=== PATIENT | male | born 1980 | race African-American/Black ===

== ENCOUNTER 2019-07-13 03:21 | Emergency (ER) | payer SELFPAY ==
[~2019-07-13] VITALS: Ht 165.1 cm; Wt 72.6 kg
[2019-07-13 03:30] VITALS: BP 145/110
--- NOTE | 2019-07-13 03:30 | NUR ---
ED Nurse Note: Patient walked into ED c/o nosebleeding. It's been about for 2 hours due to taking drug from nose. Pt is AO x 4, amulatory.
--- NOTE | 2019-07-13 03:40 | NUR ---
ED Nurse Note: Cleaned up blood on his face and hand. Provioded pt nose clip. Denies SOB and pain.
--- NOTE | 2019-07-13 03:59 | Emergency Room Report ---
History of Present Illness General Chief Complaint: Nosebleed Source: Patient Present Illness HPI This is a 39-year-old male with a history of high blood pressure but not take any blood pressure medication. He presents with chief complaint of nosebleed. Mostly on the left side. Onset for last 2 hours. Unable to get it to stop. This occurred after he was snorting cocaine. He also had alcohol tonight. No fever chills but no nausea no vomiting. Similar symptom in the past but usually stop on its own. Allergies: Coded Allergies: No Known Allergies (Unverified , 07/13/19) COVID-19 Screening Contact w/high risk pt: No Recent Travel to affected area: No Experienced COVID-19 symptoms?: No COVID-19 Testing performed PATHOLOGY TECH: No Patient History Past Medical History: see triage record, old chart reviewed, HTN Past Surgical History: none Pertinent Family History: none Social History: Reports: smoking, alcohol use, drug use Immunizations: other Reviewed Nursing Documentation: PMH: Agreed; PSxH: Agreed Nursing Documentation-PMH Past Medical History: No History, Except For Hx Hypertension: Yes Review of Systems Eye: Denies: eye pain, blurred vision ENT: Denies: ear pain, nose congestion, throat swelling Respiratory: Denies: cough, shortness of breath Cardiovascular: Denies: chest pain, palpitations Gastrointestinal: Denies: abdominal pain, diarrhea, nausea, vomiting Musculoskeletal: Denies: back pain, joint pain Skin: Denies: rash Neurological: Denies: headache, numbness Endocrine: Denies: increased thirst, increased urine Hematologic/Lymphatic: Denies: easy bruising All Other Systems: negative except mentioned in HPI Physical Exam Vital Signs Date Time Temp Pulse Resp B/P (MAP) Pulse Ox O2 Delivery O2 Flow Rate FiO2 07/13/19 03:27 97.9 110 18 145/110 (122) 98 Room Air Vitals with high blood pressure Sp02 EP Interpretation: reviewed, normal General Appearance: well appearing, no apparent distress, alert Head: normocephalic, atraumatic Eyes: bilateral eye PERRL, bilateral eye EOMI ENT: hearing grossly normal, normal pharynx, other - Brisk oozing on the septum of the left nares. No posterior bleeding. Right side with scant bleeding but not active. Neck: full range of motion, supple, no meningismus Respiratory: chest non-tender, lungs clear, normal breath sounds Cardiovascular #1: regular rate, rhythm, no murmur Gastrointestinal: normal bowel sounds, non tender, no mass, no organomegaly, no bruit, non-distended Musculoskeletal: back normal, normal range of motion, gait/station normal Psychiatric: mood/affect normal Procedures Additional Procedure Procedure Narrative Procedure: Epistaxis control Indication: Epistaxis Description: I placed a 5.5 cm Rhino Rocket in the left nares. I inflated it. This helped slow down the bleeding. Patient tolerated procedure without any problem. Medical Decision Making Diagnostic Impression: Primary Impression: Epistaxis Additional Impressions: Hypertension Qualified Codes: I10 - Essential (primary) hypertension Cocaine abuse ER Course Patient presents with epistaxis. Probably worsened because of his cocaine and hypertension. Better after Rhino Rocket. Will discharge home. Dose of Norvasc given here. Last Vital Signs Date Time Temp Pulse Resp B/P (MAP) Pulse Ox O2 Delivery O2 Flow Rate FiO2 07/13/19 03:27 97.9 110 18 145/110 (122) 98 Room Air Status: improved Disposition: HOME, SELF-CARE Condition: Stable Scripts Amlodipine Besylate (Norvasc) 10 Mg Tablet 10 MG ORAL DAILY, #90 TAB Prov: Everett Doty MD 07/13/19 Referrals: NOT CHOSEN [facility]/,REFERRING (PCP) Patient Instructions: Nosebleed, [id number] Additional Instructions: Stop using drugs. Follow-up with rehab. Take your blood pressure medication. Follow-up with your doctor in 7 days. Return if symptoms worsen. Everett Doty MD July 13, 2019 03:59
[2019-07-13] MEDS ORDERED: NORVASC10 MG ORAL (04:02)
--- NOTE | 2019-07-13 04:08 | NUR ---
ED Nurse Note: Provided HTN meds for his high BP. Denies headache and pain.
[2019-07-13 04:30] VITALS: BP 145/110
--- NOTE | 2019-07-13 04:30 | NUR ---
ER DISCHARGE NOTE: Patient is cleared to be discharged per ERMD, pt is aox4, on room air, with stable vital signs. pt was given dc and prescription instructions, pt was able to verbalize understanding, pt id band removed without complications. pt is able to ambulate with steady gait. pt took all belongings. pt was provided clinic information for his follow up visit.
== END 2019-07-13 04:30 | disposition home or self-care (01) ==
LOC: EMR 03:30
DX: R04.0 Epistaxis (principal); I10 Essential (primary) hypertension; F14.10 Cocaine abuse, uncomplicated; F17.200 Nicotine dependence, unspecified, uncomplicated
CPT/HCPCS: 99282

== ENCOUNTER 2019-07-15 07:14 | Emergency (ER) | payer SELFPAY ==
[~2019-07-15] VITALS: Ht 162.6 cm; Wt 68.0 kg
[~2019-07-15 07:14] MED LIST: NORVASC10 MG ORAL
[2019-07-15 07:38] VITALS: BP 141/91
--- NOTE | 2019-07-15 07:40 | NUR ---
ED Nurse Note:pt. came to remove rhinoracket in left nausdril, seen by
--- NOTE | 2019-07-15 07:54 | Emergency Room Report ---
History of Present Illness General Chief Complaint: Nosebleed Source: Patient Present Illness HPI Patient had epistaxis that was controlled with the Rhino Rocket. He is here for Rhino Rocket removal. There is been no bleeding with the Rhino Rocket in place. Patient denies fevers or chills. Patient denies headaches. Patient denies melena. Allergies: Coded Allergies: No Known Allergies (Unverified , 07/13/19) COVID-19 Screening Contact w/high risk pt: No Recent Travel to affected area: No Experienced COVID-19 symptoms?: No COVID-19 Testing performed [employer]: No Patient History Past Medical History: see triage record Social History: Reports: smoking, drug use - Cocaine Social History Narrative From home Reviewed Nursing Documentation: PMH: Agreed; PSxH: Agreed Nursing Documentation-PMH Hx Hypertension: Yes Hx Seizures: Yes Review of Systems Constitutional: Reports: see HPI ENT: Reports: see HPI Respiratory: Denies: shortness of breath Cardiovascular: Denies: chest pain Gastrointestinal: Reports: see HPI Neurological: Denies: headache, syncope Hematologic/Lymphatic: Reports: see HPI Physical Exam Vital Signs Date Time Temp Pulse Resp B/P (MAP) Pulse Ox O2 Delivery O2 Flow Rate FiO2 07/15/19 07:20 97.9 108 20 141/91 (108) 100 Room Air Sp02 EP Interpretation: reviewed, normal General Appearance: well appearing, no apparent distress, GCS 15 Head: normocephalic Eyes: bilateral eye PERRL, bilateral eye EOMI, bilateral eye Scleral Injection ENT: uvula midline - Normal pharynx without bleeding, moist mucus membranes, other - Rhino Rocket in place no active bleeding Neck: normal inspection, full range of motion Respiratory: normal inspection Cardiovascular #1: regular rate, rhythm Cardiovascular #2: 2+ radial (R) Gastrointestinal: normal inspection Musculoskeletal: gait/station normal Neurologic: alert, grossly normal Psychiatric: mood/affect normal - Slightly anxious Skin: normal color, no rash, warm/dry, other - No petechiae or ecchymoses Medical Decision Making Diagnostic Impression: Primary Impression: Epistaxis Additional Impression: Encounter for removal of nasal packing ER Course Patient presents with a Rhino Rocket and no active bleeding. The Rhino Rocket will be removed and the patient will be observed. Rhino Rocket was removed. There was slight amount of bleeding that was controlled with direct pressure. Patient was advised as to how to take care of this. Also the patient was advised to cease doing cocaine. Patient stable for outpatient observation and treatment. Last Vital Signs Date Time Temp Pulse Resp B/P (MAP) Pulse Ox O2 Delivery O2 Flow Rate FiO2 07/15/19 08:00 97.9 78 20 141/91 100 Room Air Status: improved Disposition: HOME, SELF-CARE Condition: Improved Referrals: NOT CHOSEN [facility]/,REFERRING (PCP) Honorio Kingsley MD July 15, 2019 07:54
[2019-07-15 08:00] VITALS: BP 141/91
--- NOTE | 2019-07-15 08:00 | NUR ---
ER DISCHARGE NOTE: Patient is cleared to be discharged per ERMD, pt is aox4, on room air, with stable vital signs. pt was given instructions, pt was able to verbalize understanding, pt is able to ambulate with steady gait. pt took all belongings.
== END 2019-07-15 08:18 | disposition home or self-care (01) ==
LOC: EMR 07:40
DX: R04.0 Epistaxis (principal); F17.200 Nicotine dependence, unspecified, uncomplicated; I10 Essential (primary) hypertension; G40.909 Epilepsy, unspecified, not intractable, without status epilepticus
CPT/HCPCS: 99281